=== PATIENT | female | born 1970 | race Caucasian/White ===

== ENCOUNTER 2019-03-16 12:42 | Emergency (ER) | payer BC ==
--- OUTSIDE RECORDS SUMMARY | 2019-03-16 12:57 | XMS REPORT | Continuity of Care Document ---
:1970 External Reference #:[id number] Author Name Ko Santana MD Address [address] [facility] [place] [address] Care Team Providers Name Role Phone Lorri Castillo M.D. Care Team Information Captain Cannery Tender Unavailable Lorri Castillo M.D. Primary Care Physician Unavailable Payers Date Identification Numbers Payment Provider Subscriber Effective: 2016 Policy Number: [id number] Out Of Area [facility] [employer] Group Number: [id number] [address] [id number] PayID: [id number] [place] [address] Family History Date Family Member(s) Observation Comments Father 70 Father No Current Problems Mother 67 Mother Endometriosis Of Uterus with severe complications First Brother 47 First Brother Liver Disease HERNANDEZ Maternal Grandfather due to Natural Causes () Maternal Grandmother due to NV () Maternal Grandmother due to Diabetes () Social History Type Date Description Comments Sex Unknown Marital Status . Diet Healthy, Well Balanced vegetarian Sleep Reports normal sleep activity Tobacco Use Start: Unknown Denies Tobacco Use Smoking Status Reviewed: 10/08/18 Denies Tobacco Use ETOH Use Rare Recreational Drug Use Denies Drug Use Exercise Type/Frequency Exercises regularly Currently Active Patient is currently sexually active Allergies, Adverse Reactions, Alerts Active Allergies Reaction Severity Comments Date Penicillin 01/23/2018 Inactive Allergies NKDA 01/23/2018 NKDA 01/23/2018 Medications Active Medications SIG Qnty Indications Ordering Provider Date Claritin 1 tab qd Unknown History Medications No Active Unknown 03/11/2019 - Medications 03/11/2019 Meclizine HCL 1 tab by mouth 30tabs H81.12 Ko Roberson 10/08/2018 - 25mg three times a MD Esther 03/11/2019 Tablets day as needed for vertigo No Active Unknown 01/23/2018 - Medications 10/08/2018 Vital Signs Date Vital Result Comment 03/11/2019 1:57pm BP Systolic 86 mmHg BP Diastolic 58 mmHg Heart Rate 72 /min Body Temperature 97.7 F Respiratory Rate 12 /min Height 62 inches 5'2" measured Weight 134.00 lb BMI (Body Mass Index) 24.5 kg/m2 10/08/2018 11:39am BP Systolic 130 mmHg BP Diastolic 70 mmHg Heart Rate 74 /min Body Temperature 98.2 F Respiratory Rate 16 /min Height 61.25 inches 5'1.25" 01/23/2018 6:11pm BP Systolic 96 mmHg BP Diastolic 58 mmHg Heart Rate 80 /min Body Temperature 97.9 F Respiratory Rate 16 /min Height 61.25 inches 5'1.25" Weight 128.50 lb BMI (Body Mass Index) 24.1 kg/m2 Results Test Date Facility Test Result H/L Range Note Laboratory test 04/17/2018 [facility](fma) Amylase, 364 U/L High 20- 105 finding Serum Laboratory test 04/17/2018 [facility] Lipase 56 U/L 14-72 1 finding [address] [place] [address] (607)- - Laboratory test 01/31/2018 [facility] Lipase 65 U/L 14-72 finding [address] [place] [address] (607)- - Comprehensive 01/23/2018 [facility](fma) Sodium 141 mEq/L 134-149 Metabolic Prof Potassium 3.8 mEq/L 3.6-5.5 Chloride 98 mEq/L 94-112 Carbon Dioxide 27 mEq/L 21-32 Glucose 97 mg/dL 70-105 BUN 19 mg/dL 6-26 Creatinine 0.6 mg/dL 0.6-1.4 BUN/Creat Ratio 31.7 CALC 8.0-36.0 Calcium 9.7 mg/dL 8.6-10.2 Total Protein 7.2 g/dL 6.4-8.3 Albumin 4.7 g/dL 3.8-5.5 Globulin 2.5 g/dL 2.0-4.8 A/G Ratio 1.9 CALC 0.6-2.3 Alk. Phosphatase 57 U/L 30-110 Alt (SGPT) 15 U/L 7-35 Ast (Sgot) 21 U/L 5-34 Total Bilirubin 0.4 mg/dL 0.2-1.3 GFR Non- >60 ml/min/1.73m^ >=60 GFR >60 ml/min/1.73m^ >=60 Laboratory test 01/23/2018 [facility](fma) Amylase, Serum 210 U/L High 20-105 finding CBC Electronic 01/23/2018 [facility] WBC 8.18 4.0-10.0 (Fma New) (762)- - RBC 4.32 3.93-6.0 Hemoglobin (Fma/CMC/CTX) 12.9 g/dL 12.0-17.0 Hematocrit (Fma/CMC/CTX) 38.1 % 35.0-50.0 Mean Corpuscular Vol 88.2 fL 80-95 Mean Corpuscular Hemoglobin 29.9 pg 25.6-32.2 Mean Corpuscular Hemo Concen 33.9 g/dL 32.2-36.0 Platelets 226 10^3/ul 163-400 RDW-CV 12.6 11.6-14.4 Mean Platelet Volume 9.8 fL 9.4-12.4 Absolute Neutrophils BLD 5.97 1.56-6.13 Absolute Lymphocytes 1.43 1.18-3.74 Absolute Monocytes BLD Auto 0.60 0.24-0.82 Absolute Eos Blood 0.14 0.04-0.54 Absolute Basophils 0.03 0.01-0.08 Neutrophil % 73.0 High 34.0-70.0 Lymph% 17.5 % Low 20.0-52.0 Monocytes % 7.3 % 5.0-12.0 Eos % 1.7 % 0.7-7.0 Basophil% 0.4 % 0.1-1.2 Laboratory test 01/23/2018 [facility] Antinuclear Negative 2, 3 finding [address] [facility] Antibodies, [place] [address] (326)- - Rheumatoid 01/23/2018 [facility] Ra Latex Turbid. <10.0 IU/mL 0.0-1 Arthritis Factor [address] [facility] 3.9 ([facility]) [place] [address] (607)- - Lyme, Western 01/23/2018 [facility] IgG P93 Ab. Absent Blot, Serum [address] [place] [address] (609)- - IgG P66 Ab. Absent IgG P58 Ab. Absent IgG P45 Ab. Absent IgG P41 Ab. Absent IgG P39 Ab. Absent IgG P30 Ab. Absent IgG P28 Ab. Absent IgG P23 Ab. Absent IgG P18 Ab. Absent Lyme IgG WB Interp. Negative 4 IgM P41 Ab. Absent IgM P39 Ab. Absent IgM P23 Ab. Absent Lyme IgM WB Interp. Negative 5 Tick Testing B. 01/23/2018 [facility] B. burgdorferi TNP [address] [place] [address] [phone] - Laboratory test 01/23/2018 [facility] No Specimen Received TNP [address] [place], [place] [phone] ([phone] - Written Authorization See Comment: 8 Ehrlichiosis Panel 01/23/2018 [facility] E. chaffeensis Negative Neg:<1:[address] [place] [address] ([facility]) [place] [address] (600)- - E. chaffeensis ([facility]) IgM Titer Negative Neg:<1:20 9 Hge IgG Titer Negative Neg:<1:64 10 Hge IgM Titer Negative Neg:<1:20 11 Babesia Microti 01/23/2018 [facility] Babesia microti <1:10 Neg:<1:10 AB Panel [address] [facility] [place] [address] (600)- - Babesia microti IgG <1:10 Neg:<1:10 12 1 1 sst 2 2 sst 3 Negative <1:80 Borderline 1:80 Positive >1:80 4 Positive: 5 of the following Borrelia-specific bands: 18,23,28,30,39,41,45,58, 66, and 93. Negative: No bands or banding patterns which do not meet positive criteria. 5 Note: An equivocal or positive EIA result followed by a negative Western Blot result is considered NEGATIVE. An equivocal or positive EIA result followed by a positive Western Blot is considered POSITIVE by the CDC. Positive: 2 of the following bands: 23,39 or 41 Negative: No bands or banding patterns which do not meet positive criteria. Criteria for positivity are those recommended by CDC/ASTPHLD. p23=Osp C, f52=xcvcfebdi Note: Sera from individuals with the following may cross react in the Lyme Western Blot assays: other spirochetal diseases (periodontal disease, leptospirosis, relapsing fever, yaws, and pinta); connective autoimmune (Rheumatoid Arthritis and Systemic Lupus Erythematosus and also individuals with Antinuclear Antibody); other infections (Methow Spotted Fever; Katelyn-Navarro Virus, and Cytomegalovirus). 6 No specimen received. Tick testing does not diagnose Lyme disease in humans. Results indicate only whether or not B. burgdorferi was detected in the tick. If you believe you have any symptoms of Lyme disease consult your physician immediately. 7 No specimen received. TEST: [id number] Tick Testing, B. burgdorferi 8 Written Authorization Received. Authorization received from SIGNATURE ON FILE 01-26-2018 Logged by Waqas Collado 9 IgG titers if 1:64 or greater indicate exposure or acute and convalescent samples showing a four-fold increase, and/or the presence of IgM indicate recent or current infection. 10 HGE IgG levels are detectable 7 to 10 days post infection and persist approximately one year. 11 Due to a reagent backorder, this test was performed using a different assay. The reference interval for this alternate assay is: Negative <1:64 Positive 1:64 or greater IgM levels usually rise 3 to 5 days post infection and fall to normal levels in approximately 30 to 60 days. 12 This test was developed and its performance characteristics determined by [employer]. It has not been cleared or approved by the U.S. Food and Drug Administration. The FDA has determined that such clearance or approval is not necessary. This test is used for clinical purposes. It should not be regarded as investigational or research. Procedures Date Code Description Status 01/23/2018 71202 Electrocardiogram Complete Completed 09/11/2012 13876339 Mammogram Completed 09/11/2005 [id number] Colonoscopy Completed Encounters Type Date Location Provider Dx Diagnosis Office Visit 10/08/2018 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 Yes No Are there Barriers to Adherence? Yes No Has the patient been asked about herbal supplements and therapies, and OTC meds? Yes No
--- NOTE | 2019-03-16 12:59 | ED ---
Shortness of Breath - HPI Summary HPI Summary: A 48 y/o female brought in by JANELL presents to [facility] with a chief complaint of SOB. She says that she was walking in an air conditioned place when she experienced sudden SOB and was near syncopal. She then went to urgent care and had an EKG that showed an abnormality. She says that her hand and fingers have gotten numb and she is still SOB even though her O2 Sat is 100. She denies a Hx of anxiety or panic attacks. She has a Hx of PFO which was diagnosed last year at Dr. Hargrove's office, and a Hx of vertigo. For the PFO, she said that Dr. Hargrove's office said they would leave it because she is healthy. She has a SHx of and endometriosis surgeries. FHx of hypotension, DM and SC. - History of Current Complaint Time Seen by Provider: 03/16/19 12:50 Hx Obtained From: Patient Onset/Duration: Sudden Onset, Lasting Hours, Still Present Timing: Constant Dyspnea At: Rest Aggravating Factors: Nothing Alleviating Factors: Nothing - Allergy/Home Medications Allergies/Adverse Reactions: Allergies Allergy/AdvReac Type Severity Reaction Status Date / Time Penicillins Allergy CONVULSIONS Verified 09/20/18 15:22 PMH/Surg Hx/FS Hx/Imm Hx Endocrine/Hematology History: Denies: Hx Diabetes Cardiovascular History: Reports: Other Cardiovascular Problems/Disorders - PFO Denies: Hx Hypertension, Hx Pacemaker/ICD History: Denies: Hx Renal Disease Sensory History: Denies: Hx Hearing Aid Neurological History: Reports: Other Neuro Impairments/Disorders - vertigo Psychiatric History: Denies: Hx Panic Disorder - Surgical History Surgery Procedure, Year, and Place: C SECTION. ENDOMETRIOSIS - Family History Known Family History: Positive: Cardiac Disease - SC, Diabetes, Other - hypotension - Social History Alcohol Use: None Hx Substance Use: No Substance Use Type: Reports: None Hx Tobacco Use: No Smoking Status (MU): Never Smoked Tobacco Review of Systems Negative: Fever Positive: Shortness Of Breath Positive: Numbness - in fingers and hands All Other Systems Reviewed And Are Negative: Yes Physical Exam - Summary Physical Exam Summary: VITAL SIGNS: Reviewed. GENERAL: Patient is a well-developed and nourished FEMALE who is lying comfortable in the stretcher. Patient is not in any acute respiratory distress. HEAD AND FACE: No signs of trauma. No ecchymosis, hematomas or skull depressions. No sinus tenderness. EYES: PERRLA, EOMI x 2, No injected conjunctiva, no nystagmus. EARS: Hearing grossly intact. Ear canals and tympanic membranes are within normal limits. MOUTH: Oropharynx within normal limits. NECK: Supple, trachea is midline, no adenopathy, no JVD, no carotid bruit, no c- spine tenderness, neck with full ROM. CHEST: Symmetric, no tenderness at palpation. LUNGS: Clear to auscultation bilaterally. No wheezing or crackles. CVS: Regular rate and rhythm, S1 and S2 present, no murmurs or gallops appreciated. ABDOMEN: Soft, non-tender. No signs of distention. No rebound, no guarding, and no masses palpated. Bowel sounds are normal. EXTREMITIES: FROM in all major joints, no edema, no cyanosis or clubbing. NEURO: Alert and oriented x 3. No acute neurological deficits. Speech is normal and follows commands. SKIN: Dry and warm. Psych: anxiety Triage Information Reviewed: Yes Vital Signs Reviewed: Yes Diagnostics - Laboratory Result Diagrams: 03/16/19 13:15 03/16/19 13:15 Lab Statement: Any lab studies that have been ordered have been reviewed, and results considered in the medical decision making process. - Radiology CXR Radiology Interpretation Completed By: Radiologist Summary of Radiographic Findings: No radiographic evidence for acute cardiopulmonary abnormality on this. portable chest x-ray. ED physician has reviewed this imaging report. - EKG 12:59 Cardiac Rate: NL - 93 bpm EKG Rhythm: Sinus Rhythm Summary of EKG Findings: EKG at 12:59 showed NSR at [address] elevations. Re-Evaluation - Re-Evaluation First Eval Re-Evaluation Time: 16:45 - 4 Change: Improved Comment: Pt is feeling better and ready for DC. Course/Dx - Course Assessment/Plan: A 48 y/o female brought in by JANELL presents to [facility] with a chief complaint of SOB. She says that she was walking in an air conditioned place when she experienced sudden SOB and was near syncopal. She then went to urgent care and had an EKG that showed an abnormality. She says that her hand and fingers have gotten numb and she is still SOB even though her O2 Sat is 100. She denies a Hx of anxiety or panic attacks. She has a Hx of PFO which was diagnosed last year at Dr. Hargrove's office, and a Hx of vertigo. For the PFO, she said that Dr. Hargrove's office said they would leave it because she is healthy. She has a SHx of and endometriosis surgeries. FHx of hypotension, DM and SC. Blood test results without any significant abnormality except for potassium of 3.4, anion gap is 15, glucose is 106, lactic is 4.1 magnesium 1.7 and 2 troponins 4 hours apart and 0.00. In the ED course the patient was hydrated and after hydration and given potassium and magnesium the symptoms resolved. The patient doesnt have any increasing levels account or the CRP therefore I do not believe that the patient has any type of infection. Patient reports that all symptoms have resolved. Because the patient has no significant comorbidities and no family history of cardiovascular disease at his age the patient will be discharged home with follow up of PMD. I discussed all the findings and test results with the patient. Patient was instructed to return to the emergency room immediately if any of the symptoms return or worsens. Patient understands and agrees. Plan of care was discussed with the patient and patient understands and agrees. All questions were answered at patient satisfaction. There were no further complaints or concerns. PE before discharge: CVS: S1 and S2 present. No murmurs appreciated. Abdominal exam before discharge: Soft, non-tender. No signs of distention. No rebound no guarding, and no masses palpated. Bowel sounds are normal. Patient is alert and oriented x 3. Patient is hemodynamically stable. - Diagnoses Provider Diagnoses: Atypical chest pain, Dyspnea Discharge - Sign-Out/Discharge Documenting (check all that apply): Patient Departure - DC Patient Received Moderate/Deep Sedation with Procedure: No - Discharge Plan Condition: Stable Disposition: HOME Patient Education Materials: Chest Pain (DC), Dyspnea (ED) Referrals: Edie Travis NP [Primary Care Provider] - (2-3 days) Additional Instructions: FOLLOW UP WITH YOUR PRIMARY CARE PROVIDER. RETURN TO THE ED FOR ANY WORSENING OR NEW SYMPTOMS. - Billing Disposition and Condition Condition: STABLE Disposition: Home - Attestation Statements Document Initiated by Scribe: Yes Documenting Scribe: Tolu Orellana Provider For Whom Scribe is Documenting (Include Credential): Thomas Camarena MD Scribe Attestation: I, Tolu Orellana, scribed for Thomas Camarena MD on 03/17/19 at 1205. Scribe Documentation Reviewed: Yes Provider Attestation: The documentation as recorded by the scribeTolu accurately reflects the service I personally performed and the decisions made by me, Thomas Camarena MD Status of Scribe Document: Viewed
[2019-03-16 13:28] LABS: ABS Basophils 0.1 10^3/ul (0-0.2); ABS Eosinophils 0.1 10^3/ul (0-0.6); ABS Lymphocytes 1.9 10^3/ul (1.0-4.8); ABS Monocytes 0.3 10^3/ul (0-0.8); ABS Neutrophils 3.9 10^3/ul (1.5-7.7); Hematocrit 44 % (35-47); Lymphocyte % 29.4 %; Mean Corpuscular HGB Conc 34 g/dL (31-36); Mean Corpuscular Hemoglobin 30 pg (27-31); Mean Corpuscular Volume 89 fL (80-97); Mean Platelet Volume 7.9 fL (7.4-10.4); Nucleated Red Blood Cells % 0.1; Platelet Count 234 10^3/uL (150-450); Red Cell Distribution Width 13 % (10-15); White Blood Count 6.3 10^3/uL (3.5-10.8)
[2019-03-16 13:44] LABS: Albumin 4.7 g/dL (3.2-5.2); Albumin/Globulin Ratio 1.5 (1-3); BUN/Creatinine Ratio 16.5 (8-20); Calcium 9.9 mg/dL (8.6-10.3); EGFR African American 87.1 (>60); Globulin 3.1 g/dL (2-4); Magnesium 1.7 mg/dL (1.9-2.7); Potassium 3.4 mmol/L (3.5-5.0); Total Bilirubin 0.6 mg/dL (0.2-1.0); Total Protein 7.8 g/dL (6.4-8.9)
[2019-03-16 13:50] LABS: CKMB ng/mL 0.5 ng/mL (0.6-6.3)
[2019-03-16] MEDS ORDERED: Aspirin 81 mg CHEW TAB* 81 MG TAB.CHEW PO ONE (13:50)
[2019-03-16] MEDS: NS 0.9% 1000 ML** 2,000 ML IV ONE (14:03)
[2019-03-16] MEDS ORDERED: Potassium Chlor TAB* 20 MEQ TAB.ER PO ONE (14:14)
[2019-03-16] MEDS ORDERED: Magnesium Oxide TAB* 400 MG PO ONE (14:14)
[2019-03-16 14:28] LABS: TSH (Thyroid Stimulating Horm) 3.93 mcIU/mL (0.34-5.60)
[2019-03-16 17:04] VITALS: BP 112/73
== END 2019-03-16 17:03 | disposition home or self-care (01) ==
LOC: ED 12:42
DX: R07.89 Other chest pain (principal); R06.00 Dyspnea, unspecified; Z88.0 Allergy status to penicillin
CPT/HCPCS: 36415; 71045; 80053; 82550; 82553; 83605; 83735; 83880; 84443; 84484; 85025; 93005; 96360; 96361; 99283; A9270-GY